=== PATIENT | female | born 1955 | race Caucasian/White ===

== ENCOUNTER 2016-08-16 01:24 | Emergency (ER) | payer OTHER ==
[~2016-08-16 01:24] MED LIST: FLEXERIL10 MG PO; HYDROCHLOROTHIA25 MG PO; METFORMIN HCL500 MG PO; METHOTREXATE2.5 M2 PO; MOTRIN800 MG PO; ZESTRIL10 MG PO
[2016-08-16 02:25] LABS: CALCIUM 9.3 mg/dL (8.5-10.1); CARBON DIOXIDE 27.2 mmol/L (21-32); CHLORIDE SERUM 105 mmol/L (98-107); CREATININE SERUM 0.6 mg/dL (0.6-1.0); GFR1 > 60 mL/min; GLUCOSE SERUM 136 mg/dL (74-106); POTASSIUM SERUM 4.1 mmol/L (3.5-5.1); SODIUM SERUM 141 mmol/L (136-145)
[2016-08-16 02:30] LABS: ALBUMIN 3.7 g/dL (3.4-5.0); ALKALINE PHOSPHATASE 154 U/L (46-116); ALT/SGPT 38 U/L (14-59); AST/SGOT 19 U/L (15-37); BILIRUBIN TOTAL 0.26 mg/dL (0.20-1.00)
[2016-08-16 02:31] LABS: TOTAL PROTEIN, SERUM 8.3 g/dL (6.4-8.2)
[2016-08-16 02:36] LABS: BASOPHIL % 1.5 % (0-2); RED CELL DISTRIBUTION WIDTH 12.2 % (11.5-14.5)
[2016-08-16 02:38] LABS: PLATELET COUNT 434 x10^3mcL (130-400)
[2016-08-16 03:10] VITALS: BP 129/77
== END 2016-08-16 03:10 | disposition home or self-care (01) ==
LOC: ED 01:24
PROVIDERS: Emergency Medicine
DX: F41.9 Anxiety disorder, unspecified (principal); G47.00 Insomnia, unspecified; I10 Essential (primary) hypertension; M19.90 Unspecified osteoarthritis, unspecified site
CPT/HCPCS: 36415

== ENCOUNTER 2016-10-04 05:19 | Emergency (ER) | payer OTHER ==
[2016-10-04 06:20] LABS: UA SPECIFIC GRAVITY 1.025 (1.005-1.035); microscopic required? YES; urine erythrocyte TRACE (NEGATIVE)
[2016-10-04 06:27] LABS: BASOPHIL % 0.5 % (0-2); PLATELET COUNT 333 x10^3mcL (130-400); RED CELL DISTRIBUTION WIDTH 14.4 % (11.5-14.5)
[2016-10-04 06:30] LABS: CARBON DIOXIDE 25.7 mmol/L (21-32); CHLORIDE SERUM 108 mmol/L (98-107); CREATININE SERUM 0.7 mg/dL (0.6-1.0); GFR1 > 60 mL/min; GLUCOSE SERUM 104 mg/dL (74-106); POTASSIUM SERUM 4.5 mmol/L (3.5-5.1); SODIUM SERUM 143 mmol/L (136-145)
[2016-10-04 06:35] LABS: ALBUMIN 3.6 g/dL (3.4-5.0); ALKALINE PHOSPHATASE 135 U/L (46-116); ALT/SGPT 29 U/L (14-59); AST/SGOT 16 U/L (15-37); BILIRUBIN TOTAL 0.26 mg/dL (0.20-1.00); TOTAL PROTEIN, SERUM 7.8 g/dL (6.4-8.2)
[2016-10-04 12:23] VITALS: BP 140/85
== END 2016-10-04 12:23 | disposition home or self-care (01) ==
LOC: ED 05:19
PROVIDERS: Emergency Medicine
DX: R10.13 Epigastric pain (principal); M19.90 Unspecified osteoarthritis, unspecified site; Z96.659 Presence of unspecified artificial knee joint
CPT/HCPCS: J1885; J7030; Q0092

== ENCOUNTER 2017-07-15 19:54 | Inpatient (IN) | payer OTHER ==
[~2017-07-15] VITALS: Ht 162.6 cm; Wt 79.9 kg
[2017-07-15 20:06] VITALS: Ht 162.6 cm; Wt 79.9 kg
[2017-07-15 21:31] LABS: BASOPHIL % 0.2 % (0-2); PLATELET COUNT 306 x10^3mcL (130-400); RED CELL DISTRIBUTION WIDTH 12.8 % (11.5-14.5)
[2017-07-15 21:47] LABS: UA SPECIFIC GRAVITY 1.025 (1.005-1.035); microscopic required? YES; urine erythrocyte TRACE (NEGATIVE)
[2017-07-15 22:29] LABS: ALBUMIN 3.8 g/dL (3.4-5.0); ALKALINE PHOSPHATASE 133 U/L (46-116); ALT/SGPT 47 U/L (14-59); BILIRUBIN TOTAL 0.3 mg/dL (0.20-1.00); CALCIUM 8.8 mg/dL (8.5-10.1); CARBON DIOXIDE 30.4 mmol/L (21-32); CHLORIDE SERUM 105 mmol/L (98-107); CREATININE SERUM 0.7 mg/dL (0.6-1.0); GFR1 > 60 mL/min; GLUCOSE SERUM 123 mg/dL (74-106); LIPASE 136 IU/L (73-393); POTASSIUM SERUM 3.9 mmol/L (3.5-5.1); SODIUM SERUM 143 mmol/L (136-145)
[2017-07-15 22:52] LABS: AST/SGOT 28 U/L (15-37)
[2017-07-15 23:09] LABS: OSMOLALITY SERUM 300 mOsm/kg (278-298)
[2017-07-16] MEDS ORDERED: DIO160 PO (00:37)
[2017-07-16 01:31] VITALS: BP 157/68
[2017-07-16] MEDS ORDERED: DIOVAN HCT1 TA2 PO (02:06)
[2017-07-16 02:07] LABS: T3 TOTAL 1.45 ng/mL
[2017-07-16] MEDS ORDERED: CITALOPRAM HYDR20 M1 PO (02:07)
[2017-07-16 02:28] LABS: CHOLESTEROL/HDL RATIO 3.2; MAGNESIUM 2.2 mg/dL (1.8-2.4); PHOSPHOROUS 4.5 mg/dL (2.5-4.9)
[2017-07-16 02:35] LABS: FREE T4 0.78 ng/dL (0.76-1.46); FREE THYROXINE INDEX 2.3 ug/dL (1.4-4.5)
[2017-07-16 06:05] LABS: BASOPHIL % 0.4 % (0-2); PLATELET COUNT 289 x10^3mcL (130-400); RED CELL DISTRIBUTION WIDTH 12.8 % (11.5-14.5)
[2017-07-16 06:13] VITALS: BP 115/61
[2017-07-16 06:22] LABS: CALCIUM 8.3 mg/dL (8.5-10.1); CARBON DIOXIDE 27.7 mmol/L (21-32); CHLORIDE SERUM 106 mmol/L (98-107); CREATININE SERUM 0.6 mg/dL (0.6-1.0); GFR1 > 60 mL/min; GLUCOSE SERUM 109 mg/dL (74-106); POTASSIUM SERUM 4.8 mmol/L (3.5-5.1); SODIUM SERUM 141 mmol/L (136-145)
[2017-07-16 09:51] VITALS: BP 166/78
[2017-07-16 13:50] VITALS: BP 137/62
[2017-07-16 17:44] VITALS: BP 133/62
[2017-07-16 20:41] VITALS: BP 115/61
[2017-07-17 05:41] VITALS: BP 126/66
[2017-07-17 06:22] LABS: BASOPHIL % 0.5 % (0-2); PLATELET COUNT 298 x10^3mcL (130-400); RED CELL DISTRIBUTION WIDTH 13.1 % (11.5-14.5)
[2017-07-17 06:26] LABS: CALCIUM 8.6 mg/dL (8.5-10.1); CARBON DIOXIDE 26.9 mmol/L (21-32); CHLORIDE SERUM 105 mmol/L (98-107); CREATININE SERUM 0.6 mg/dL (0.6-1.0); GFR1 > 60 mL/min; GLUCOSE SERUM 101 mg/dL (74-106); MAGNESIUM 2.1 mg/dL (1.8-2.4); PHOSPHOROUS 4.5 mg/dL (2.5-4.9); POTASSIUM SERUM 4.6 mmol/L (3.5-5.1); SODIUM SERUM 141 mmol/L (136-145)
[2017-07-17 08:15] VITALS: BP 137/70
[2017-07-17 13:35] VITALS: BP 132/63
[2017-07-17 17:48] VITALS: BP 124/62
[2017-07-17 20:26] VITALS: BP 116/56
[2017-07-18 05:07] VITALS: BP 124/64
[2017-07-18 06:37] LABS: BASOPHIL % 0.5 % (0-2); PLATELET COUNT 290 x10^3mcL (130-400)
[2017-07-18 07:17] LABS: CALCIUM 8.5 mg/dL (8.5-10.1); CARBON DIOXIDE 30.2 mmol/L (21-32); CHLORIDE SERUM 106 mmol/L (98-107); CREATININE SERUM 0.7 mg/dL (0.6-1.0); GFR1 > 60 mL/min; GLUCOSE SERUM 103 mg/dL (74-106); POTASSIUM SERUM 4.2 mmol/L (3.5-5.1); SODIUM SERUM 139 mmol/L (136-145)
[2017-07-18 08:57] VITALS: BP 142/61
[2017-07-18] MEDS ORDERED: LIPI20 PO (10:48)
[2017-07-18] MEDS ORDERED: ESGIC CAPSULE1 EACH PO (10:49)
[2017-07-18] MEDS ORDERED: JANUVIA100 M1 PO (10:51)
[2017-07-18 11:01] VITALS: BP 142/61
== END 2017-07-18 12:00 | disposition home or self-care (01) | DRG 73 ==
LOC: ED 19:54 → DU 07-16 00:48 → MU 07-17 17:10
PROVIDERS: Emergency Medicine; Family Medicine
DX: G90.9 Disorder of the autonomic nervous system, unspecified (principal); N17.0 Acute kidney failure with tubular necrosis; E87.2 Acidosis; E04.1 Nontoxic single thyroid nodule; E86.0 Dehydration; E11.65 Type 2 diabetes mellitus with hyperglycemia; E78.5 Hyperlipidemia, unspecified; E83.51 Hypocalcemia; F32.9 Major depressive disorder, single episode, unspecified; E66.9 Obesity, unspecified; Z68.30 Body mass index [BMI] 30.0-30.9, adult; Z79.84 Long term (current) use of oral hypoglycemic drugs; Z96.653 Presence of artificial knee joint, bilateral; M06.9 Rheumatoid arthritis, unspecified; I11.9 Hypertensive heart disease without heart failure
CPT/HCPCS: 36600; 82962; 83880; 84439; J2270; J2405; J2550; J3490; J7030; J8597; Q0092; Q0163

== ENCOUNTER 2018-04-18 23:34 | Emergency (ER) | payer OTHER ==
[~2018-04-18] VITALS: Ht 167.6 cm; Wt 80.3 kg
[~2018-04-18 23:34] MED LIST changes: +CITALOPRAM HYDR20 M1 PO; +DIO160 PO; +DIOVAN HCT1 TA2 PO; +ESGIC CAPSULE1 EACH PO; +JANUVIA100 M1 PO; +LIPI20 PO
[2018-04-18 23:41] VITALS: Ht 167.6 cm; Wt 80.3 kg
[2018-04-19 01:24] VITALS: BP 133/84
== END 2018-04-19 01:24 | disposition home or self-care (01) ==
LOC: ED 23:34
DX: R05 Cough (principal); R07.89 Other chest pain; I10 Essential (primary) hypertension; E11.9 Type 2 diabetes mellitus without complications
CPT/HCPCS: J1885; J7030